=== PATIENT | male | born 1980 | race Caucasian/White ===

== ENCOUNTER 2018-03-03 05:50 | Day surgery (SDC) | payer BC ==
[2018-03-03] MEDS ORDERED: CEFAZOLIN 1 GM INJ (07:00)
[2018-03-03] MEDS: OXYMETAZOLINE 0.05% 15 ML NAS SPRAY NASAL (07:20)
[2018-03-03] MEDS: LIDOCAINE 1%/EPI 30 ML INJ (07:20)
[2018-03-03] MEDS ORDERED: MIDAZOLAM 1 MG/ML 2 ML INJ (07:43)
[2018-03-03] MEDS ORDERED: ROCURONIUM 50 MG INJ (09:21)
[2018-03-03] MEDS ORDERED: NEOSTIGMINE 3 MG/3 ML SYRINGE (09:21)
[2018-03-03] MEDS ORDERED: GLYCOPYRROLATE 0.4 MG INJ (09:21)
[2018-03-03] MEDS ORDERED: PROPOFOL 20 ML (09:21)
[2018-03-03] MEDS ORDERED: LIDOCAINE 2% (SDV) 5 ML INJ (09:21)
[2018-03-03] MEDS ORDERED: ONDANSETRON 4 MG INJ (09:22)
[2018-03-03] MEDS ORDERED: MEPERIDINE 25 MG INJ IV (10:00)
[2018-03-03] MEDS ORDERED: HYDROmorphONE 1 MG/5 ML IV SYRINGE IV (10:00)
[2018-03-03] MEDS: HYDROmorphONE 1 MG/5 ML IV SYRINGE IV (10:09)
[2018-03-03] MEDS: ONDANSETRON 4 MG INJ IV (10:10)
[2018-03-03] MEDS: FENTAnyl 50 MCG/ML VIAL IV (10:44)
[2018-03-03] MEDS: DIPHENHYDRAMINE 50 MG INJ IV (11:06)
[2018-03-03] MEDS: HYDROCODONE/APAP (5/325) TAB PO (12:05)
== END 2018-03-03 12:50 | disposition home or self-care (01) ==
LOC: SDS 05:50
DX: S02.2XXA Fracture of nasal bones, initial encounter for closed fracture (principal); J32.9 Chronic sinusitis, unspecified; X58.XXXA Exposure to other specified factors, initial encounter; Y93.89 Activity, other specified; Y92.89 Other specified places as the place of occurrence of the external cause; Y99.8 Other external cause status
CPT/HCPCS: 21330; 88300; 88304

== ENCOUNTER 2018-04-27 08:33 | Day surgery (SDC) | payer BC ==
[~2018-04-27 08:33] MED LIST: ACETAMINOPHEN 1000 MG/100 ML IVPB; LIDOCAINE 2% (SDV) 5 ML INJ
[2018-04-27 09:26] LABS: ADD MAN DIFF? NO
[2018-04-27 09:28] LABS: BASOPHILS % 0.5 % (0.0-2.0); EOSINOPHILS # 0.1 10^3/ul (0.0-0.5); EOSINOPHILS % 3.2 % (0.0-7.0); HEMATOCRIT 46.3 % (42.0-52.0); LYMPHOCYTES # 0.9 10^3/ul (0.8-2.9); LYMPHOCYTES % 20.6 % (15.0-51.0); MEAN CORPUSCULAR HEMOGLOBIN 28.8 pg (29.0-33.0); MEAN CORPUSCULAR HGB CONC 34.6 g/dl (32.0-37.0); MEAN CORPUSCULAR VOLUME 83.3 fl (82.0-101.0); MONOCYTE # 0.5 10^3/ul (0.3-0.9); MONOCYTES % 11.7 % (0.0-11.0); NEUTROPHIL # 2.6 10^3/ul (1.6-7.5); NEUTROPHILS % 63.8 % (39.0-77.0); PLATELET COUNT 229 10^3/UL (140-415); RED BLOOD COUNT 5.56 10^6/ul (4.70-6.10); RED CELL DISTRIBUTION WIDTH 12.8 % (11.5-14.5)
[2018-04-27 09:31] LABS: HOLD TRANSMISSIONS 1
[2018-04-27 09:34] LABS: WHITE BLOOD COUNT 4.1 10^3/ul (4.8-10.8)
[2018-04-27 09:46] LABS: INR 0.97
[2018-04-27 09:47] LABS: PARTIAL THROMBOPLASTIN TIME 29.1 Sec (23.0-35.0)
[2018-04-27] MEDS ORDERED: PROPOFOL 100 ML (10:15)
[2018-04-27] MEDS ORDERED: OXYMETAZOLINE 0.05% 15 ML NAS SPRAY NASAL (10:21)
[2018-04-27] MEDS ORDERED: ROCURONIUM 50 MG INJ (11:01)
[2018-04-27] MEDS ORDERED: DEXAMETHASONE 4 MG/ML 1 ML INJ (11:02)
[2018-04-27] MEDS ORDERED: ONDANSETRON 4 MG INJ (11:02)
[2018-04-27] MEDS: LIDOCAINE 1%/EPI 30 ML INJ (11:03)
[2018-04-27] MEDS ORDERED: SUGAMMADEX SODIUM 200 MG/2 ML VIAL IV (12:04)
[2018-04-27] MEDS ORDERED: HYDROmorphONE 1 MG/5 ML IV SYRINGE IV ×4 (12:40→13:00)
[2018-04-27] MEDS: HYDROmorphONE 1 MG/5 ML IV SYRINGE IV ×5 (12:58→16:18)
[2018-04-27] MEDS ORDERED: METOCLOPRAMIDE 10 MG INJ IV ×2 (13:00)
[2018-04-27] MEDS ORDERED: EPHEDrine SULFATE 50 MG/5 ML SYG IV (13:00)
[2018-04-27] MEDS ORDERED: ALBUTEROL 0.083% (NEB) 2.5 MG/3 ML AMP HHN (13:00)
[2018-04-27] MEDS ORDERED: FENTAnyl 50 MCG/ML VIAL IV ×4 (13:00)
[2018-04-27] MEDS ORDERED: hydrALAzine 20 MG INJ IV (13:00)
[2018-04-27] MEDS ORDERED: OXYCODONE/ACETAMINOPHEN (5/325) TAB PO (13:00)
[2018-04-27] MEDS ORDERED: LABETALOL HCL 20MG INJ IV (13:00)
[2018-04-27] MEDS ORDERED: DIPHENHYDRAMINE 50 MG INJ IV (13:00)
[2018-04-27] MEDS ORDERED: MEPERIDINE 25 MG INJ IV (13:00)
[2018-04-27] MEDS ORDERED: ONDANSETRON 4 MG INJ IV ×2 (13:00)
[2018-04-27] MEDS ORDERED: MIDAZOLAM 1 MG/ML 2 ML INJ IV (13:00)
[2018-04-27] MEDS: FENTAnyl 50 MCG/ML VIAL IV ×3 (13:02→13:19)
[2018-04-27] MEDS: OXYCODONE/ACETAMINOPHEN (5/325) TAB PO (13:29)
== END 2018-04-27 17:30 | disposition home or self-care (01) ==
LOC: SDS 08:33
DX: S02.2XXD Fracture of nasal bones, subsequent encounter for fracture with routine healing (principal); X58.XXXD Exposure to other specified factors, subsequent encounter; J32.4 Chronic pansinusitis
CPT/HCPCS: 21325; 85025; 85610; 85730; 88300

== ENCOUNTER 2018-06-13 16:05 | Emergency (ER) | payer BC ==
[2018-06-13] MEDS: LIDOCAINE 1% (MPF) 5 ML VIAL INJ (18:52)
[2018-06-13 18:59] LABS: URINE PH (Dip) POC 7.5 (5.0-8.5)
[2018-06-13 18:59] LABS: URINE BLOOD (Dip) POC Negative (NEGATIVE); URINE GLUCOSE (Dip) POC Negative (NEGATIVE); URINE KETONES (Dip) POC Negative (NEGATIVE); URINE LEUKOCYTE EST (Dip) POC Negative (NEGATIVE); URINE NITRITE (Dip) POC Negative (NEGATIVE); URINE TOTAL PROTEIN POC Negative (NEGATIVE)
== END 2018-06-13 20:08 | disposition home or self-care (01) ==
LOC: FTE 16:05
DX: L60.0 Ingrowing nail (principal); K08.89 Other specified disorders of teeth and supporting structures; Z87.891 Personal history of nicotine dependence
CPT/HCPCS: 11765; 81003; 99283-25